=== PATIENT | female | born 1955 | race Caucasian/White ===

== ENCOUNTER 2016-07-14 13:15 | Emergency (ER) | payer MEDICAID ==
[2016-07-14 13:26] VITALS: BP 164/112; PULSE 108; RESP 22; TEMP 98.8; O2SAT 90
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
== END 2016-07-14 14:23 | disposition home or self-care (01) ==
LOC: EDUNIT#
DX: T76.31XA Adult psychological abuse, suspected, initial encounter (principal); F17.200 Nicotine dependence, unspecified, uncomplicated

== ENCOUNTER 2017-05-22 00:37 | Emergency (ER) | payer OTHER ==
[2017-05-22 00:49] VITALS: BP 116/98; PULSE 104; RESP 18; TEMP 98.1; O2SAT 98
[2017-05-22] MEDS ORDERED: PROPARACAINE 0.5% 15 ML OPHT DROP OP ONE (00:49)
[2017-05-22] MEDS ORDERED: FLUORESCEIN SOD/BENOXINATE HCL 20 DROPS/ML OPHT.BTL ONE (00:52)
--- NOTE | 2017-05-22 00:57 | EDPHY ---
H & P Time Seen by Provider: 05/22/17 00:55 HPI/ROS: CHIEF COMPLAINT: Left eye pain HISTORY OF PRESENT ILLNESS: 62-year-old female notes that she has had left eye pain for the last 6 hr. Earlier in the day, several hours before the onset of the pain, she noted that she was attempting to put magnetic eye lashes on the left eye. She was unable to do so. However, at the same time she does not recall actually injuring the eye. It was until cello hours later that she started noticing pain. Since approximately 6 hr ago she has had pain in the left eye with excessive tearing bilaterally. She also notes left eye to be quite reddened. Overtime has been a progressive achiness from the left eye to the left periorbital area. There is no direct blunt trauma per se. She has had no discharge from the eye. She tried to go to sleep with a patch on that she had made up at home. This only transiently improved things. She woke on the pain started getting worse again. She did not take any Tylenol ibuprofen. Contact Lenses none Eye drops none Eye surgery none Pt queried and denies: prior hx of substance abuse, noting that she was just successfully able to withdraw from her very protracted. Time of regarding Oxy as well as benzodiazepines. ROS: Constitutional - no fevers or chills or rigors Eyes - no diplopia, blurred vision, or discharge except for excessive tearing ENT - no earache, change in hearing, difficulty swallowing, sore throat Neurologic-no headache per se purchase an ache in his left periorbital region. Smoking Status: Current every day smoker Physical Exam: General Appearance: Alert, apparent agitation to a mild degree due to her pain and apprehension regarding getting off medications just recently. Afebrile. Normal phonation. No respiratory distress. Wearing a little well-lit room however she does feel better when I turn down the lights. Though mildly photosensitive, not truly photophobic. There is no signs of a dilated pupil Eyes: Pupils equal and round no pallor or injection. No icterus. Lids without changes. No ptosis. [Moderate] erythema of bulbar and eyelid conjunctival surface without flare or limbal predominance. No spasm or pain with light. No preauricular nodes. Slit Lamp: Deep, clear quiet anterior chamber without cells or flare. No hyphema or hypopion or ulcer. Flourescein: Uptake on the left upper quadrant of the eye, temporal area, he curvilinear discrete corneal abrasion that is shallow. ENT, Mouth: Mucous membranes moist. Pharynx without erythema or exudate. TM Clear. Sinuses nontender. Neck: No adenopathy. Supple. Neurological: Ox3. Gait nl. Skin: Warm and dry, no rashes. Psych: Calm. Constitutional: Initial Vital Signs Temperature (C) 36.7 C 05/22/17 00:46 Heart Rate 104 H 05/22/17 00:46 Respiratory Rate 18 05/22/17 00:46 Blood Pressure 116/98 H 05/22/17 00:46 O2 Sat (%) 98 05/22/17 00:46 O2 Delivery Mode Room Air Allergies/Adverse Reactions: No Known Allergies Allergy (Verified 05/22/17 00:49) Home Medications: Medication Instructions Recorded NK [No Known Home Meds] 05/22/17 Medical Decision Making ED Course/Re-evaluation: The fluorescein is with a combination of proparacaine and gave her immediate relief. I everted the left eyelid and there is no signs of foreign body present. We discussed the need for I follow-up. Regarding pain management it is best to avoid narcotics in this situation such as OS with her successfully coming off of that class of medications. Thereby she will have the option of either a patch or proparacaine over the next 24 hr - she clearly understood that she is not to use these together Differential Diagnosis: Diagnostic considerations include, but are not limited to, the following: Corneal laceration, corneal abrasion, Corneal FB, conjunctival foreign body, allergic conjunctivitis, bacterial conjunctivitis, viral conjunctivitis, chemical conjunctivitis ,glaucoma - Data Points Medications Given: Discontinued Medications Erythromycin (Erythromycin 2% Gel) 1 argenis TP EDNOW ONE Stop: 05/22/17 01:29 Last Admin: 05/22/17 01:44 Dose: Not Given Proparacaine HCl (Alcaine 0.5%) 2 drops OP EDNOW ONE Stop: 05/22/17 00:50 Last Admin: 05/22/17 01:45 Dose: Not Given Departure - Departure Disposition: Home, Routine, Self-Care Clinical Impression: Corneal abrasion, left Qualifiers: Encounter type: initial encounter Qualified Code(s): S05.02XA - Injury of conjunctiva and corneal abrasion without foreign body, left eye, initial encounter Condition: Good Instructions: Erythromycin (On the skin), Proparacaine (Into the eye) Additional Instructions: In the morning, call the outset of follow-up. It will be important to follow up if things do not continue to get better over the next 2-3 days. For her pain management: Tylenol and Advil works well together the combination: Tylenol 1000 mg and 600 mg every 8 hours. The you should consider try Patching or using the proparacaine but not both: Try patching the eye as we showed you. This will work well with the erythromycin ointment, applying the ointment 4 times daily. OR On occasion, as often as every hour, for the 1st 24 hrs only, you may use the proparacaine eyedrops as a topical anesthetic. This however does not work well if here trying to keep the patch on. You're not do both. In this instance he should continue to use the erythromycin ointment, however not the patch. Referrals: Patient,NotPresent [Primary Care Provider] - As per Instructions Paulo Payne MD [Medical Doctor] - As per Instructions
[2017-05-22] MEDS ORDERED: ERYTHROMYCIN 2% GEL TP ONE (01:28)
[2017-05-22] MEDS ORDERED: ERYTHROMYCIN 0.5% 1 GM OPHT.OINT ONE (01:29)
[2017-05-22] MEDS ORDERED: ERYTHROMYCIN 2% GEL TP SCH (02:00)
== END 2017-05-22 01:39 | disposition home or self-care (01) ==
LOC: CED 00:37
DX: S05.02XA Injury of conjunctiva and corneal abrasion without foreign body, left eye, initial encounter (principal); F17.200 Nicotine dependence, unspecified, uncomplicated; X58.XXXA Exposure to other specified factors, initial encounter